=== PATIENT | male | born 1995 | race Two or more races ===

== ENCOUNTER 2019-08-20 23:28 | Emergency (ER) | payer SELFPAY ==
[~2019-08-20] VITALS: Ht 172.7 cm; Wt 78.0 kg
[2019-08-21] MEDS ORDERED: IBUPROFEN 600MG TABLET PO ONE (02:15)
[2019-08-21 04:00] VITALS: BP 133/71
== END 2019-08-21 04:00 | disposition home or self-care (01) ==
LOC: ER 23:28
DX: H92.01 Otalgia, right ear (principal); J45.909 Unspecified asthma, uncomplicated
CPT/HCPCS: 71045; 87804; 99284